=== PATIENT | male | born 1990 | race Caucasian/White ===

== ENCOUNTER 2016-12-02 19:30 | Emergency (ER) | payer OTHER ==
[2016-12-02] MEDS ORDERED: predniSONE 20 MG TAB As Ordered ONE (20:22)
--- NOTE | 2016-12-02 20:51 | EDDOCDS ---
Nurse's Notes [facility] Name: Spike Howe Age: 25 yrs Sex: Male : 1990 Arrival Date: 12/02/2016 Time: 19:30 Bed TR5 Private MD: Other - Complete Info On Cds Diagnosis: Contact urticaria;Irritant contact dermatitis Presentation: 12/02 19:34 Presenting complaint: Patient states: that he has a rash that started 2 weeks ago on ms18 his R lower leg. Pt states this happened while he was training in [place] and has now spread to his butt and chest. Onset: The symptoms/episode began/occurred 2 week(s) ago. This patient has not experienced a previous allergic reaction. Anaphylaxis evaluation, the patient reports or I have noted the following symptoms which indicate a significant risk of anaphylaxis: no signs or symptoms of anaphylaxis were noted. Adult Sepsis Screening: The patient does not have new or worsening altered mentation. Patient's respiratory rate is less than 22. Systolic blood pressure is greater than 100. Patient has a qSOFA score of 0- Negative Sepsis Screen. Suicide/Homicide risk assessment- the patient denies having any suicidal and/or homicidal ideations and does not present with any other emotional, behavioral or mental health complaints. 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 Transition of care: patient was not received from another setting of care. 19:34 Acuity: JESUS Level 4 ms18 19:34 Method Of Arrival: Walkin/Carried/Asstd ms18 Triage Assessment: 19:38 General: Appears in no apparent distress, comfortable, Behavior is appropriate for age, ms18 cooperative. Pain: Location: lateral aspect of right calf. HIV screening NA for this visit Offered previously. Neurological: Level of Consciousness is awake, alert, obeys commands, Oriented to person, place, time. Respiratory: Airway is patent Respiratory effort is even, unlabored, Reports no respiratory complaints. Derm: Skin is pink, warm & dry. Historical: - Allergies: no known allergies; - Home Meds: 1. none - PMHx: none; - PSHx: Tonsillectomy; - Social history: Smoking status: Patient states was never smoker of tobacco. No barriers to communication noted, The patient speaks fluent Bulgarian. - Family history: Not pertinent. - : The pt / caregiver states he / she is not on anticoagulants. Home medication list is obtained from the patient. - Exposure Risk Screening:: None identified. Screenin:25 Screening information is obtained from the patient. Fall risk: No risks identified. jo3 Assistance ADL's: requires no assistance with activities of daily living. Abuse/DV Screen: The patient / caregiver reports he/she is: not in a situation that causes fear, pain or injury. Nutritional screening: No deficits noted. Advance Directives: There is no active DNR order. home support is adequate. Assessment: 20:25 General: Appears in no apparent distress, comfortable, Behavior is appropriate for age, jo3 cooperative, pleasant. Neurological: Level of Consciousness is awake, alert, Oriented to person, place, time. Cardiovascular: No deficits noted. Respiratory: No deficits noted. Airway is patent Respiratory effort is even, unlabored. Vital Signs: 19:32 BP 156 / 89; Pulse 59; Resp 18 S; Temp 97.4(O); Pulse Ox 99% on R/A; Weight 90.72 kg gr2 (R); Height 6 ft. 2 in. (187.96 cm) (R); Pain 2/10; 19:32 Body Mass Index 25.68 (90.72 kg, 187.96 cm) gr2 Vitals: 19:32 Log In Time: December 02, 2016 at 19:32. gr2 ED Course: 19:31 Patient visited by Marcela Manzo. gr2 19:31 Patient moved to Waiting gr2 19:32 Other - Complete Info On Cds is Private Physician. gr2 19:33 Patient visited by Marcela Manzo. gr2 19:33 Patient moved to Pre RCE gr2 19:38 Triage Initiated ms18 19:52 [facility] ke 19:52 Patient visited by Germain Carter FNP. ke 19:52 Patient visited by Germain Carter FNP. ke 19:52 Patient moved to 12 [facility] 20:03 Patient name changed from Spike\S\S\S\Shyam\S\ to Spike\S\Wallace\S\Shyam. EDMS 20:03 [facility]. ke 20:05 [facility] Payment Agreement was scanned into [facility] [employer] and attached to record. gb 20:25 The patient / caregiver is instructed regarding the plan of care and ED course. jo3 20:25 No IV's were initiated during this patient's visit. No procedures done that require jo3 assistance. 20:44 Patient moved to [place] [address] Administered Medications: 20:26 Drug: predniSONE 60 mg [prednisone 20 mg tablet (3 tabs)] Route: PO; jo3 Order Results: There are currently no results for this order. Outcome: 20:04 Discharge ordered by Provider. ke 20:25 Discharge Assessment: Patient awake, alert and oriented x 3. No cognitive and/or jo3 functional deficits noted. Patient verbalized understanding of disposition instructions. patient administered narcotics - no. The following High Risk Discharge criteria are identified: None. Discharged to home ambulatory. Condition: good. Discharge instructions given to patient, Instructed on discharge instructions, follow up and referral plans. medication usage, Demonstrated understanding of instructions, medications, Pt was receptive of discharge instructions/ teaching. Prescriptions given X 2. No special radiology studies were completed. Property sent home with patient. 20:49 Patient left the ED. jo3 Signatures: Dispatcher [employer] EDMS Courtney Greene, Reg Reg Germain Carter, ARABIC LINGUIST ARABIC LINGUIST Lorin ArceRN PREM jo3 Melissa Olivera, RN RN sls1 Marcela Manzo gr2 Matthew Castañeda RN RN jmb Smith, MalloryRN RN ms18 MTDD
--- NOTE | 2016-12-02 20:51 | EDDOCDS ---
Physician Documentation [facility] Name: Spike Howe Age: 25 yrs Sex: Male : 1990 Arrival Date: 12/02/2016 Time: 19:30 Bed TR5 Private MD: Other - Complete Info On Cds Disposition: 12/02/16 20:04 Discharged to Home/Self Care. Impression: Contact urticaria, Irritant contact dermatitis. - Condition is Stable. - Discharge Instructions: Contact Dermatitis. - Prescriptions for Zyrtec 10 mg Oral Tablet - take 1 tablet by ORAL route once daily As needed; 20 tablet. Prednisone 10 mg Oral Tablet - take 1 tablet by ORAL route as directed Day1-3:6 po,day4-5:5 po,day6-7: 4 po,day8-9:3 po,gyo82-43:2 po,day 12-14:1 po; 49 tablet. - Medication Reconciliation, Local Pharmacy Hours form. - Follow up: Anthony Chirinos [facility]; When: 4 - 5 days; Reason: Recheck today's complaints, Continuance of care. - Problem is an ongoing problem. - Symptoms are unchanged. Historical: - Allergies: no known allergies; - Home Meds: 1. none - PMHx: none; - PSHx: Tonsillectomy; - Social history: Smoking status: Patient states was never smoker of tobacco. No barriers to communication noted, The patient speaks fluent South Sudanese. - Family history: Not pertinent. - : The pt / caregiver states he / she is not on anticoagulants. Home medication list is obtained from the patient. - Exposure Risk Screening:: None identified. Vital Signs: 12/02 19:32 BP 156 / 89; Pulse 59; Resp 18 S; Temp 97.4(O); Pulse Ox 99% on R/A; Weight 90.72 kg / gr2 200 lbs (R); Height 6 ft. 2 in. (187.96 cm) (R); Pain 2/10; 19:32 Body Mass Index 25.68 (90.72 kg, 187.96 cm) gr2 MDM: 20:01 Financial registration complete. gb 20:03 predniSONE 60 mg PO once; administer with food or milk ordered. ke 20:05 [facility] Payment Agreement was scanned into [employer] and attached to record. gb Administered Medications: 20:26 Drug: predniSONE 60 mg [prednisone 20 mg tablet (3 tabs)] Route: PO; jo3 Signatures: Courtney Greene, Don Reg Germain Hernandez FNP FNP ke Helmerci, JenniferRN RN jo3 Ashley Wallace RN RN ms18 The chart was reviewed and I authenticate all verbal orders and agree with the evaluation and treatment provided.Attachments: 20:05 [facility] Payment Agreement gb MTDD
--- NOTE | 2016-12-04 21:51 | EDDOCDS ---
Nurse's Notes [facility] Name: Spike Howe Age: 25 yrs Sex: Male : 1990 Arrival Date: 12/02/2016 Time: 19:30 Bed TR5 Private MD: Other - Complete Info On Cds Diagnosis: Contact urticaria;Irritant contact dermatitis Presentation: 12/02 19:34 Presenting complaint: Patient states: that he has a rash that started 2 weeks ago on ms18 his R lower leg. Pt states this happened while he was training in [place] and has now spread to his butt and chest. Onset: The symptoms/episode began/occurred 2 week(s) ago. This patient has not experienced a previous allergic reaction. Anaphylaxis evaluation, the patient reports or I have noted the following symptoms which indicate a significant risk of anaphylaxis: no signs or symptoms of anaphylaxis were noted. Adult Sepsis Screening: The patient does not have new or worsening altered mentation. Patient's respiratory rate is less than 22. Systolic blood pressure is greater than 100. Patient has a qSOFA score of 0- Negative Sepsis Screen. Suicide/Homicide risk assessment- the patient denies having any suicidal and/or homicidal ideations and does not present with any other emotional, behavioral or mental health complaints. 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 Transition of care: patient was not received from another setting of care. 19:34 Acuity: JESUS Level 4 ms18 19:34 Method Of Arrival: Walkin/Carried/Asstd ms18 Triage Assessment: 19:38 General: Appears in no apparent distress, comfortable, Behavior is appropriate for age, ms18 cooperative. Pain: Location: lateral aspect of right calf. HIV screening NA for this visit Offered previously. Neurological: Level of Consciousness is awake, alert, obeys commands, Oriented to person, place, time. Respiratory: Airway is patent Respiratory effort is even, unlabored, Reports no respiratory complaints. Derm: Skin is pink, warm & dry. Historical: - Allergies: no known allergies; - Home Meds: 1. none - PMHx: none; - PSHx: Tonsillectomy; - Social history: Smoking status: Patient states was never smoker of tobacco. No barriers to communication noted, The patient speaks fluent Romanian. - Family history: Not pertinent. - : The pt / caregiver states he / she is not on anticoagulants. Home medication list is obtained from the patient. - Exposure Risk Screening:: None identified. Screenin:25 Screening information is obtained from the patient. Fall risk: No risks identified. jo3 Assistance ADL's: requires no assistance with activities of daily living. Abuse/DV Screen: The patient / caregiver reports he/she is: not in a situation that causes fear, pain or injury. Nutritional screening: No deficits noted. Advance Directives: There is no active DNR order. home support is adequate. Assessment: 20:25 General: Appears in no apparent distress, comfortable, Behavior is appropriate for age, jo3 cooperative, pleasant. Neurological: Level of Consciousness is awake, alert, Oriented to person, place, time. Cardiovascular: No deficits noted. Respiratory: No deficits noted. Airway is patent Respiratory effort is even, unlabored. Vital Signs: 19:32 BP 156 / 89; Pulse 59; Resp 18 S; Temp 97.4(O); Pulse Ox 99% on R/A; Weight 90.72 kg gr2 (R); Height 6 ft. 2 in. (187.96 cm) (R); Pain 2/10; 19:32 Body Mass Index 25.68 (90.72 kg, 187.96 cm) gr2 Vitals: 19:32 Log In Time: December 02, 2016 at 19:32. gr2 ED Course: 19:31 Patient visited by Marcela Manzo. gr2 19:31 Patient moved to Waiting gr2 19:32 Other - Complete Info On Cds is Private Physician. gr2 19:33 Patient visited by Marcela Manzo. gr2 19:33 Patient moved to Pre RCE gr2 19:38 Triage Initiated ms18 19:52 [facility] ke 19:52 Patient visited by Germain Carter FNP. ke 19:52 Patient visited by Germain Carter FNP. ke 19:52 Patient moved to 12 [facility] 20:03 Patient name changed from Spike\S\S\S\Shyam\S\ to Spike\S\Wallace\S\Shyam. EDMS 20:03 [facility]. ke 20:05 [facility] Payment Agreement was scanned into [employer] and attached to record. gb 20:25 The patient / caregiver is instructed regarding the plan of care and ED course. jo3 20:25 No IV's were initiated during this patient's visit. No procedures done that require jo3 assistance. 20:44 Patient moved to [place] [address] 12/03 12:11 T-Sheet-- Draft Copy was scanned into [employer] and attached to record. gb Administered Medications: 12/02 20:26 Drug: predniSONE 60 mg [prednisone 20 mg tablet (3 tabs)] Route: PO; jo3 Order Results: There are currently no results for this order. Outcome: 20:04 Discharge ordered by Provider. ke 20:25 Discharge Assessment: Patient awake, alert and oriented x 3. No cognitive and/or jo3 functional deficits noted. Patient verbalized understanding of disposition instructions. patient administered narcotics - no. The following High Risk Discharge criteria are identified: None. Discharged to home ambulatory. Condition: good. Discharge instructions given to patient, Instructed on discharge instructions, follow up and referral plans. medication usage, Demonstrated understanding of instructions, medications, Pt was receptive of discharge instructions/ teaching. Prescriptions given X 2. No special radiology studies were completed. Property sent home with patient. 20:49 Patient left the ED. jo3 Signatures: Dispatcher [employer] EDMS Courtney Greene, Reg Reg gb Germain Carter, VALVE INSPECTOR VALVE INSPECTOR Lorin ArceRN RN jo3 Melissa Olivera, RN RN sls1 Marcela Manzo 2 Matthew Castañeda RN RN Ashley JackRN RN ms18 Chart Complete MTDD
--- NOTE | 2016-12-04 21:51 | EDDOCDS ---
Physician Documentation [facility] Name: Spike Howe Age: 25 yrs Sex: Male : 1990 Arrival Date: 12/02/2016 Time: 19:30 Bed TR5 Private MD: Other - Complete Info On Cds Disposition: 12/02/16 20:04 Discharged to Home/Self Care. Impression: Contact urticaria, Irritant contact dermatitis. - Condition is Stable. - Discharge Instructions: Contact Dermatitis. - Prescriptions for Zyrtec 10 mg Oral Tablet - take 1 tablet by ORAL route once daily As needed; 20 tablet. Prednisone 10 mg Oral Tablet - take 1 tablet by ORAL route as directed Day1-3:6 po,day4-5:5 po,day6-7: 4 po,day8-9:3 po,rtg86-96:2 po,day 12-14:1 po; 49 tablet. - Medication Reconciliation, Local Pharmacy Hours form. - Follow up: Anthony Chirinos [facility]; When: 4 - 5 days; Reason: Recheck today's complaints, Continuance of care. - Problem is an ongoing problem. - Symptoms are unchanged. Historical: - Allergies: no known allergies; - Home Meds: 1. none - PMHx: none; - PSHx: Tonsillectomy; - Social history: Smoking status: Patient states was never smoker of tobacco. No barriers to communication noted, The patient speaks fluent Barbadian. - Family history: Not pertinent. - : The pt / caregiver states he / she is not on anticoagulants. Home medication list is obtained from the patient. - Exposure Risk Screening:: None identified. Vital Signs: 12/02 19:32 BP 156 / 89; Pulse 59; Resp 18 S; Temp 97.4(O); Pulse Ox 99% on R/A; Weight 90.72 kg / gr2 200 lbs (R); Height 6 ft. 2 in. (187.96 cm) (R); Pain 2/10; 19:32 Body Mass Index 25.68 (90.72 kg, 187.96 cm) gr2 MDM: 20:01 Financial registration complete. gb 20:03 predniSONE 60 mg PO once; administer with food or milk ordered. ke 20:05 [facility] Payment Agreement was scanned into [employer] and attached to record. gb 12/03 12:11 T-Sheet-- Draft Copy was scanned into [employer] and attached to record. gb Administered Medications: 12/02 20:26 Drug: predniSONE 60 mg [prednisone 20 mg tablet (3 tabs)] Route: PO; jo3 Signatures: Courtney Greene, Reg Reg gb Germain Carter, HEMATOLOGY TECHNICIAN Lorin Donato RN RN jo3 Ashley Wallace RN RN ms18 The chart was reviewed and I authenticate all verbal orders and agree with the evaluation and treatment provided.Attachments: 20:05 [facility] Payment Agreement gb 12/03 12:11 T-Sheet-- Draft Copy gb Chart Complete MTDD
--- NOTE | 2016-12-04 21:51 | EDDOCDS ---
Physician Documentation [facility] Name: Spike Howe Age: 25 yrs Sex: Male : 1990 Arrival Date: 12/02/2016 Time: 19:30 Bed TR5 Private MD: Other - Complete Info On Cds Disposition: 12/02/16 20:04 Discharged to Home/Self Care. Impression: Contact urticaria, Irritant contact dermatitis. - Condition is Stable. - Discharge Instructions: Contact Dermatitis. - Prescriptions for Zyrtec 10 mg Oral Tablet - take 1 tablet by ORAL route once daily As needed; 20 tablet. Prednisone 10 mg Oral Tablet - take 1 tablet by ORAL route as directed Day1-3:6 po,day4-5:5 po,day6-7: 4 po,day8-9:3 po,vjc86-26:2 po,day 12-14:1 po; 49 tablet. - Medication Reconciliation, Local Pharmacy Hours form. - Follow up: Anthony Chirinos [facility]; When: 4 - 5 days; Reason: Recheck today's complaints, Continuance of care. - Problem is an ongoing problem. - Symptoms are unchanged. Historical: - Allergies: no known allergies; - Home Meds: 1. none - PMHx: none; - PSHx: Tonsillectomy; - Social history: Smoking status: Patient states was never smoker of tobacco. No barriers to communication noted, The patient speaks fluent Romanian. - Family history: Not pertinent. - : The pt / caregiver states he / she is not on anticoagulants. Home medication list is obtained from the patient. - Exposure Risk Screening:: None identified. Vital Signs: 12/02 19:32 BP 156 / 89; Pulse 59; Resp 18 S; Temp 97.4(O); Pulse Ox 99% on R/A; Weight 90.72 kg / gr2 200 lbs (R); Height 6 ft. 2 in. (187.96 cm) (R); Pain 2/10; 19:32 Body Mass Index 25.68 (90.72 kg, 187.96 cm) gr2 MDM: 20:01 Financial registration complete. gb 20:03 predniSONE 60 mg PO once; administer with food or milk ordered. ke 20:05 [facility] Payment Agreement was scanned into [employer] and attached to record. gb 12/03 12:11 T-Sheet-- Draft Copy was scanned into [employer] and attached to record. gb Administered Medications: 12/02 20:26 Drug: predniSONE 60 mg [prednisone 20 mg tablet (3 tabs)] Route: PO; jo3 Signatures: Courtney Greene, Reg Reg gb Germain Carter, STEAK SAUCE MAKER Lorin Donato RN RN jo3 Ashley Wallace RN RN ms18 The chart was reviewed and I authenticate all verbal orders and agree with the evaluation and treatment provided.Attachments: 20:05 [facility] Payment Agreement gb 12/03 12:11 T-Sheet-- Draft Copy gb Chart Complete MTDD
== END 2016-12-02 20:49 | disposition home or self-care (01) ==
LOC: M ED 19:30
DX: L23.9 Allergic contact dermatitis, unspecified cause (principal)